=== PATIENT | male | born 1990 | race Native Hawaiian/Other Pacific Islander ===

== ENCOUNTER 2019-04-04 12:39 | Emergency (ER) | payer OTHER ==
[~2019-04-04] VITALS: Ht 177.8 cm; Wt 99.8 kg
[2019-04-04 12:43] VITALS: TEMP 97.9
[2019-04-04] MEDS ORDERED: CLARITIN10 M1 PO (12:50)
[2019-04-04] MEDS ORDERED: VYVANSE40 MG PO (12:52)
[2019-04-04] MEDS ORDERED: FLUTMIS6 INH (12:52)
[2019-04-04 14:09] VITALS: BP 121/71
== END 2019-04-04 14:09 | disposition home or self-care (01) ==
LOC: ED 12:39
DX: S60.221A Contusion of right hand, initial encounter (principal); S60.511A Abrasion of right hand, initial encounter; J45.909 Unspecified asthma, uncomplicated; Y35.811A Legal intervention involving manhandling, law enforcement official injured, initial encounter; Y92.149 Unspecified place in prison as the place of occurrence of the external cause
CPT/HCPCS: 94664; 99283

== ENCOUNTER 2019-07-16 09:55 | Emergency (ER) | payer BC ==
[~2019-07-16] VITALS: Ht 177.8 cm; Wt 99.8 kg
[~2019-07-16 09:55] MED LIST: CLARITIN10 M1 PO; FLUTMIS6 INH; VYVANSE40 MG PO
[2019-07-16 10:08] VITALS: TEMP 97.5
[2019-07-16 11:03] LABS: PLATELET COUNT 287 K/uL (142-355)
[2019-07-16 11:11] LABS: POTASSIUM 3.4 mmol/L (3.6-5.2)
[2019-07-16 12:29] VITALS: BP 126/86
== END 2019-07-16 12:33 | disposition home or self-care (01) ==
LOC: ED 09:55
PROVIDERS: Family Medicine
DX: N13.2 Hydronephrosis with renal and ureteral calculous obstruction (principal)
CPT/HCPCS: 36415; 80053; 82150; 83690; 85027; 96360; 96361; 96374; 96375; 96376; 99284; J1885; J2175; J2405

== ENCOUNTER 2020-03-18 09:59 | Outpatient (CLI) | payer OTHER | END 2020-03-18 20:23 | disposition home or self-care (01) | LOC: LAB 09:59 | DX: Z20.828 Contact with and (suspected) exposure to other viral communicable diseases (principal) | CPT/HCPCS: 87635; G2023; U00003 ==